=== PATIENT | female | born 1985 | race African-American/Black ===

== ENCOUNTER 2017-03-06 17:58 | Emergency (ER) | payer MEDICAID ==
[~2017-03-06] VITALS: Ht 154.9 cm; Wt 64.5 kg
[~2017-03-06 17:58] MED LIST: ADALAT PO; BRINTELLIX10 PO; BYSTOLIC5 MG PO; COREG 25MG25 MG/TAB PO; FIORICET W/CODE1 CAP PO; MAXALT10 MG PO; NEXIUM 20MG CAP20 MG PO; PRINZIDE 25 MG-1 TAB PO; ULTRAM 50MG TAB50 MG PO; XANAX 0.5MG0.5 MG PO; ZOFRAN ODT4 MG PO
[2017-03-06 18:00] VITALS: TEMP 98.8
[2017-03-06 18:48] LABS: COLLECTION METHOD CLEAN CATCH
[2017-03-06 18:52] LABS: BASO % 0.3 % (0.0-2.0); EOS # 0.2 (0.0-0.7); EOS % 2.2 % (0-4.0); GRAN # 2.7 (1.4-6.5); HEMOGLOBIN 12.1 g/dl (12.5-16.0); LYMPH # 3.5 (1.2-3.4); LYMPH % 51.2 % (20.0-51.0); MEAN CELL VOLUME 97 fl (80.0-100.0); MEAN CORPUSCULAR HEMOGLOBIN 32 pg (27.0-31.0); MEAN CORPUSCULAR HGB CONC 33 g/dl (33.0-37.0); MONO # 0.5 (0.1-0.6); MONO % 7.2 % (1.7-9.3); PLATELET COUNT 278 K/mm3 (130-400); RED BLOOD COUNT 3.78 M/mm3 (4.10-5.30); WHITE BLOOD COUNT 6.9 K/mm3 (4.8-10.8)
[2017-03-06 18:56] LABS: BUDDING YEAST Present /hpf; MUCOUS Present /lpf; PH 7 (5-8); URINE APPEARANCE Hazy; URINE BACTERIA None Seen /hpf; URINE BILIRUBIN Negative (NEGATIVE); URINE BLOOD 1+ (NEGATIVE); URINE COLOR Yellow; URINE GLUCOSE Negative (NEGATIVE); URINE KETONE Negative (NEGATIVE); URINE LEUKOCYTE ESTERASE Negative (NEGATIVE); URINE PROTEIN(semi-quant) Negative (NEGATIVE); URINE UROBILINOGEN Negative (NEGATIVE); URINE WBC None Seen /hpf
[2017-03-06 18:58] LABS: HEMATOCRIT 36.5 % (37.0-47.0)
[2017-03-06 19:04] LABS: ADJUSTED CALCIUM 8.9 mg/dL (8.4-10.2); ALBUMIN 4.5 gm/dL (3.5-5.0); BILIRUBIN,TOTAL 0.5 mg/dL (0.0-1.0); C-REACTIVE PROTEIN 0.6 mg/dL (0.0-0.9); CALCIUM 9.3 mg/dL (8.4-10.2); CREATININE, serum 0.55 mg/dL (0.52-1.25); POTASSIUM 3.3 mmol/L (3.4-5.0); TOTAL PROTEIN 7.4 gm/dL (6.4-8.2)
[2017-03-06] MEDS ORDERED: NORCO 325 MG-51 TAB PO (19:41)
[2017-03-06 20:32] VITALS: BP 158/93; PULSE 72
== END 2017-03-06 20:32 | disposition home or self-care (01) ==
LOC: COL.ER 17:58
PROVIDERS: Family Medicine
DX: K29.70 Gastritis, unspecified, without bleeding (principal); I10 Essential (primary) hypertension; Z98.890 Other specified postprocedural states
CPT/HCPCS: J2270; J2405; J7030; Q9967

== ENCOUNTER → 2017-04-09 | Outpatient (CLI) | payer MEDICAID ==
[~2017-04-09] MED LIST changes: +NORCO 325 MG-51 TAB PO
== END ==
LOC: COL.RAD 08:10
DX: R11.10 Vomiting, unspecified (principal)
CPT/HCPCS: A9541

== ENCOUNTER → 2021-04-11 | Outpatient (CLI) | payer MEDICAID | LOC: COL.RAD 09:29 | DX: K21.9 Gastro-esophageal reflux disease without esophagitis (principal); K44.9 Diaphragmatic hernia without obstruction or gangrene ==

== ENCOUNTER 2021-10-29 13:56 | Emergency (ER) | payer MEDICAID ==
[~2021-10-29] VITALS: Ht 154.9 cm; Wt 72.7 kg
[2021-10-29 14:06] VITALS: TEMP 98.5
[2021-10-29] MEDS ORDERED: MOTRIN 800800 MG/TAB PO (15:29)
[2021-10-29] MEDS ORDERED: NORCO 325 MG-51 TAB PO (15:29)
[2021-10-29 15:38] VITALS: BP 165/95; PULSE 85
== END 2021-10-29 15:38 | disposition home or self-care (01) ==
LOC: COL.ER 13:56
DX: S93.602A Unspecified sprain of left foot, initial encounter (principal); F17.210 Nicotine dependence, cigarettes, uncomplicated; Z98.890 Other specified postprocedural states; X50.1XXA Overexertion from prolonged static or awkward postures, initial encounter; Y92.59 Other trade areas as the place of occurrence of the external cause

== ENCOUNTER 2022-07-28 01:51 | Observation (INO) | payer MEDICAID ==
[~2022-07-28] VITALS: Ht 154.9 cm; Wt 73.7 kg
[2022-07-28] VITALS (7 sets, daily range): BP systolic 146–168; BP diastolic 83–97; PULSE 85–95; TEMP 97.3–98.4
[~2022-07-28 01:51] MED LIST changes: +MOTRIN 800800 MG/TAB PO
[2022-07-28] MEDS ORDERED: PROAIR HFA0.09 MG/AC (03:59)
[2022-07-28] MEDS ORDERED: NORVASC 10MG10 MG PO (03:59)
[2022-07-28] MEDS ORDERED: LEXAPRO 10MG10 MG PO (04:00)
[2022-07-28] MEDS ORDERED: BENTYL 10MG10 MG/CAP PO (04:00)
[2022-07-28] MEDS ORDERED: PRIL40 PO (04:01)
--- NOTE | 2022-07-28 04:19 | NUR ---
Patient arrived to the floor at 0300 with significant other Kush, head to toe assessment done, hospital policies orientated, rates pain at 7/10, denies the need for any pain meds at this time, IV to right AC from [facility], denies further needs, will continue to monitor.
[2022-07-28] MEDS ORDERED: DITROPAN 5MG TAB5 MG PO ×2 (06:06→06:09)
[2022-07-28] MEDS ORDERED: EUTHYROX112 MCG PO (06:07)
[2022-07-28] MEDS ORDERED: SYNTHROID0.112 MG/T PO (06:08)
--- NOTE | 2022-07-28 08:00 | NUR ---
PATIENT IS A&O AND SITTING UP IN BED TALKING ON PHONE. VSS. NO COMPLAINTS. HEAD TO TOE ASSESSMENT COMPLETE. NPO FOR SURGERY LATER TODAY. IV FLUIDS INFUSING INTO RIGHT AC IV. NO OTHER NEEDS. CALL LIGHT IN REACH.
--- NOTE | 2022-07-28 09:30 | NUR ---
DR.ROSSO STARR. PATIENT PLAN FOR OR LATER TODAY. NPO. SEE ORDERS.
--- NOTE | 2022-07-28 10:10 | NUR ---
SURGICAL CONSENT OBTAINED AND ON CHART.
--- NOTE | 2022-07-28 11:15 | NUR ---
PATIENT C/O INCREASED LEFT FLANK PAIN. GAVE PRN IV MORPHINE, SEE MAR.
--- NOTE | 2022-07-28 12:06 | NUR ---
Motor Electrician rounds: Patient is having surgery at 1400 for kidney stone. She has been texting with Family; especially oldest Daughter. Patient wanted to nap until surgery. Motor Electrician lowered the window blinds in the room. Motor Electrician read Psalm 23 and Finesse 8, then prayed for Patient. Patient was tearful, missing her Grandmother who used to read Psalms and do the Lord's Prayer at night. Motor Electrician prayed the Lord's Prayer.
--- NOTE | 2022-07-28 14:50 | NUR ---
PATIENT GOING DOWN TO OR. CONSENT ON CHART. PRE-OP FLUIDS INFUSING. PATIENT NOW OFF FLOOR.
[2022-07-28] MEDS ORDERED: PERCOCET 325 MG1 TA2 PO (15:26)
[2022-07-28] MEDS ORDERED: FLOMAX 0.40.4 MG/CAP PO (15:26)
--- NOTE | 2022-07-28 16:23 | NUR ---
Skin Care Technician met with patient for intake assessment/discharge planning: She states she has a kidney stone and is anticipating surgery within the hour; this is her second kidney stone, and she reports her pain is managed at this time. She states she is independent in her ADLs and IADLs, and she lives in a 1 level home in [place], with her partner/significant other Tony ([phone]). Patient reports she has supportive family locally, including two brothers and a [id number]. "I know how to get help if I need it." She denies use of any DME and/or oxygen at home. Her primary care physician is Dr. Roberts, and she obtains her medications at [facility] in without any difficulties. Patient identifies no needs for discharge to home at this time. *Discharge to home*
[2022-07-28] MEDS ORDERED: PYRIDIUM 100MG100 MG PO (16:27)
--- NOTE | 2022-07-28 17:10 | NUR ---
PATIENT BACK IN ROOM 343 POST OP. A&O. VSS. NO COMPLAINTS. PATIENT LOOKING AT MENU. HEAD TO TOE ASSESSMENT WNL.
--- NOTE | 2022-07-28 18:45 | NUR ---
PATIENT HAS MEET DISCHARGE CRITERIA. GAVE DISCHARGE INSTRUCTIONS, E-SCRIPTS SENT AND FAMILY ALREADY PICKED THEM UP FOR HER, AND DISCUSSED F/U APT. ANSWERED QUESTIONS/CONCERNS. DC'D RIGHT AC IV AND COVERED SITE WITH [employer]. PATIENT IS DRESSED, PACKED AND ESCORTED OUT WITH SON TO PERSONAL VEHICLE.
== END 2022-07-28 18:45 | disposition home or self-care (01) ==
LOC: SURG 01:51
PROVIDERS: ADMIT Urology
DX: N20.1 Calculus of ureter (principal); K21.9 Gastro-esophageal reflux disease without esophagitis; F17.210 Nicotine dependence, cigarettes, uncomplicated; Z79.899 Other long term (current) drug therapy
CPT/HCPCS: C1769; C2617; G0378; J0360; J0690; J1100; J1170; J1885; J2270; J2405; J2704; J3010; J7120